=== PATIENT | male | born 1980 | race Caucasian/White ===

== ENCOUNTER 2017-10-26 18:25 | Emergency (ER) | payer SELFPAY ==
[~2017-10-26] VITALS: Ht 193 cm; Wt 80.0 kg
[2017-10-26 18:27] VITALS: Ht 193 cm; Wt 80.0 kg
[2017-10-26] MEDS ORDERED: SODIUM CHLORIDE 0.9% 1000ML 2,000 ML IV STA (18:40)
[2017-10-26] MEDS ORDERED: LORAZEPAM 2 MG/ML 1 ML VIAL IV STA (18:40)
[2017-10-26 18:43] VITALS: O2SAT 100
--- NOTE | 2017-10-26 18:47 | EMERGENCY ROOM VISIT NOTE ---
History Report prepared by Nima: Omi Jeong Under the Supervision of: Dr. Chintan Robles M.D. First contact with patient: 18:32 Chief Complaint: RESPIRATORY PROBLEMS Stated Complaint: TREMMERS,HIGH HEART RATE,LEFT SIDE NUMB History of Present Illness The patient is a 37 year old male who presents to the Emergency Room with complaints of constant heart palpitations that began .5 hours ago. He rates this pain as 0/10. The patient was sitting on the couch when he suddenly felt dizzy. He states that he had spasms, and numbness on the right and left side, numbness in his chest and arms, and chest pain. His girlfriend states that he was previously taking Zoloft. He states that he has a history of drug use in his 20's and that his last alcoholic beverage was 14 hours ago. He states that he normally does not shake after drinking and states that he normally consumes 12 alcoholic beverages every night. He denies prior episodes. He denies headache , fevers, recent falls, and head strike. He denies abdominal pain, back pain, loss of bowel and bladder control. He denies recent travel, history of blood clots, and heart problems. He denies a history of panic attacks. Source of History: patient Onset: .5 hours ago Position: chest Symptom Intensity: pain rated as 0/10 Quality: other (palpitations) Timing: constant Associated Symptoms: + chest pain, No fevers, No headache, No abdominal pain , No back pain Note: Patient reports spasms, numbness on the right and left side, and numbness in his chest and arms. Patient denies recent falls with head strike. He denies loss of bowel and bladder control. Review of Systems See HPI for pertinent positives & negatives. A total of 10 systems reviewed and were otherwise negative. Past Medical & Surgical Medical Problems: (1) ADHD (2) Anxiety (3) Bipolar disorder Social History Smoking Status: Current Some Day Smoker Alcohol Use: heavy (12 drinks daily) Drug Use: other (former user) Marital Status: in relationship Housing Status: lives with family, lives with significant other Occupation Status: unemployed Current/Historical Medications No Active Prescriptions or Reported Meds Allergies Coded Allergies: No Known Allergies (Unverified , 10/26/17) Physical Exam Vital Signs Date Time Temp Pulse Resp B/P (MAP) Pulse Ox O2 Delivery O2 Flow Rate FiO2 10/26/17 20:56 36.3 99 17 139/77 97 10/26/17 20:55 36.3 99 17 139/77 97 Room Air 10/26/17 19:57 106 17 97 Room Air 10/26/17 19:36 100 10/26/17 19:27 100 20 95 Room Air 10/26/17 19:22 85 18 139/75 100 Room Air 10/26/17 19:22 88 18 95 Room Air 10/26/17 18:43 100 Room Air 10/26/17 18:27 36.3 145 32 153/91 99 Room Air Physical Exam GENERAL: Patient is severely anxious appearing, shaking, and in no acute distress. EYES: No scleral icterus, unremarkable pupils. ENT: Dry mucous membranes, no nasal congestion. NECK: No masses appreciated, no meningismus, trachea is midline. RESPIRATORY: No dyspnea. Clear to auscultation and equal bilaterally. No wheeze , no rhonchi. CARDIOVASCULAR: Tachycardiac and regular rhythm. No murmurs, rubs, gallops appreciated. GASTROINTESTINAL: Abdomen soft, nontender, no peritonitis. Bowel sounds positive. No masses appreciated. BACK: No midline tenderness, no CVA tenderness EXTREMITIES: Normal motion all extremities, no cyanosis, no edema. NEUROLOGIC: Alert and oriented, no acute motor or sensory deficits, no focal weakness, cranial nerves grossly intact. SKIN: No rash, no jaundice, no diaphoresis. Medical Decision & Procedures ER Provider Diagnostic Interpretation: Radiology results and stated below per my review and radiologist interpretation : SINGLE VIEW CHEST CLINICAL HISTORY: Atypical chest pain. FINDINGS: 2 AP, portable, upright chest radiographs are obtained. No prior studies are available for comparison at the time of dictation. The examination is degraded by portable technique and patient rotation. The cardiomediastinal silhouette is unremarkable. The lungs and pleural spaces are clear. No pneumothorax is seen. The bony thorax is grossly intact. IMPRESSION: No acute cardiopulmonary abnormality. Electronically signed by: Can Webb M.D. 10/26/2017 7:17 PM Dictated Date/Time: 10/26/2017 7:17 PM Laboratory Results 10/26/17 19:00 Red Blood Count 4.43, Mean Corpuscular Volume 97.3, Mean Corpuscular Hemoglobin 34.8, Mean Corpuscular Hemoglobin Concent 35.7, Mean Platelet Volume 10.4, Neutrophils (%) (Auto) 45.2, Lymphocytes (%) (Auto) 37.9, Monocytes (%) (Auto) 9.8, Eosinophils (%) (Auto) 6.0, Basophils (%) (Auto) 0.7, Neutrophils # (Auto) 2.04, Lymphocytes # (Auto) 1.71, Monocytes # (Auto) 0.44, Eosinophils # (Auto) 0.27, Basophils # (Auto) 0.03 10/26/17 19:00 Test 10/26/17 19:00 10/26/17 19:35 White Blood Count 4.51 K/uL (4.8-10.8) Red Blood Count 4.43 M/uL (4.7-6.1) Hemoglobin 15.4 g/dL (14.0-18.0) Hematocrit 43.1 % (42-52) Mean Corpuscular Volume 97.3 fL (80-100) Mean Corpuscular Hemoglobin 34.8 pg (25-34) Mean Corpuscular Hemoglobin Concent 35.7 g/dl (32-36) Platelet Count 152 K/uL (130-400) Mean Platelet Volume 10.4 fL (7.4-10.4) Neutrophils (%) (Auto) 45.2 % Lymphocytes (%) (Auto) 37.9 % Monocytes (%) (Auto) 9.8 % Eosinophils (%) (Auto) 6.0 % Basophils (%) (Auto) 0.7 % Neutrophils # (Auto) 2.04 K/uL (1.4-6.5) Lymphocytes # (Auto) 1.71 K/uL (1.2-3.4) Monocytes # (Auto) 0.44 K/uL (0.11-0.59) Eosinophils # (Auto) 0.27 K/uL (0-0.5) Basophils # (Auto) 0.03 K/uL (0-0.2) RDW Standard Deviation 47.2 fL (36.4-46.3) RDW Coefficient of Variation 13.3 % (11.5-14.5) Immature Granulocyte % (Auto) 0.4 % Immature Granulocyte # (Auto) 0.02 K/uL (0.00-0.02) Anion Gap 12.0 mmol/L (3-11) Est Creatinine Clear Calc Drug Dose 106.9 ml/min Estimated GFR () 103.1 Estimated GFR (Non- 89.0 BUN/Creatinine Ratio 10.5 (10-20) Calcium Level 9.1 mg/dl (8.5-10.1) Total Bilirubin 0.6 mg/dl (0.2-1) Direct Bilirubin 0.2 mg/dl (0-0.2) Aspartate Amino Transf (AST/SGOT) 92 U/L (15-37) Alanine Aminotransferase (ALT/SGPT) 69 U/L (12-78) Alkaline Phosphatase 62 U/L (45-117) Total Creatine Kinase 116 U/L (39-308) Creatine Kinase MB < 0.5 ng/ml (0.5-3.6) Creatine Kinase MB Ratio (0-3.0) Troponin I < 0.015 ng/ml (0-0.045) Total Protein 8.0 gm/dl (6.4-8.2) Albumin 4.1 gm/dl (3.4-5.0) Thyroid Stimulating Hormone (TSH) 1.730 uIu/ml (0.300-4.500) D-Dimer 220 ug/L FEU (0-500) Laboratory results as reviewed by me. Medications Administered Medications (Trade) Dose Ordered Sig/Izabella Route Start Time Stop Time Status Last Admin Dose Admin Sodium Chloride 2,000 ml @ 999 mls/hr Q2H1M STAT IV 10/26/17 18:40 10/26/17 20:40 DC 10/26/17 19:19 999 MLS/HR Lorazepam (Ativan Inj) 2 mg NOW STAT IV 10/26/17 18:40 10/26/17 18:42 DC 10/26/17 19:20 2 MG Lorazepam (Ativan 1MG Home Pack) 1 homepack UD ONCE PO 10/26/17 20:45 10/26/17 20:46 DC 10/26/17 20:52 1 HOMEPACK ECG Per My Interpretation Indication: other (heart palpitations) Rate (beats per minute): 112 Rhythm: sinus tachycardia Findings: ST depression (Mild Lateral), no acute ischemic change, no ectopy, other (No STEMI; poor baseline) ED Course 1831: The patient was evaluated in room C8. A complete history and physical exam was performed. 1930: I checked on the patient and his heart rate is 70. He states that he feels much better. 2044: Reevaluated the patient. Discussed results and discharge instructions: He verbalized understanding and agreement. The patient is ready for discharge. Medical Decision Differential: NSR, SVT, PACs, PVCs, Cardiac Dysrhythmia, Endocrine Dysfunction, Electrolyte/Metabolic Abnormality, Pulmonary Embolism, Infectious, GI, alcohol withdrawal, amongst other pathologies entertained. Very anxious 37 yr old male arrives for evaluation of palpitations associated with paresthesias all over body. He is clearly anxious though stating he is not feeling anxious. Symptoms resolved with IV ativan. He admits heavy alcohol use regularly though states he can go several days without drinking and no withdrawal symptoms. Given IV fluids as well. He has unremarkable labs other than mild AST elevation consistent with alcohol intake. Offered IM Thiamine though he wants to avoid further stabs and states he will take multivitamin daily. He has no neuro deficits by exam, no headache, and looks well thus I do not feel neuro imaging necessary. Dimer negative thus I do not feel this is PE. Trop negative and EKG without ischemia. Repeat EKG with NSR, no stemi and looks OK. He is in no distress and breathing comfortably with HR in 80s-90s after calming down. He has long history of bipolar and off meds for last 4 years. Significant other asked if I would write patient Zoloft though I noted this would probably not be appropriate from ED doc if he is not currently on it. He denies suicidal ideation, is not significant depressed by questioning and states only periodic anxiety attacks. Advised follow up with [facility]. Aware RTED if worsening or other concerns. Stable and looks well at discharge. Medication Reconcilliation Current Medication List: was personally reviewed by me Blood Pressure Screening Patient's blood pressure: Elevated blood pressure Blood pressure disposition: Elevated BP felt to be situational Impression Primary Impression: Heart palpitations Scribe Attestation The scribe's documentation has been prepared under my direction and personally reviewed by me in its entirety. I confirm that the note above accurately reflects all work, treatment, procedures, and medical decision making performed by me. Departure Information Dispostion Home / Self-Care Prescriptions No Active Prescriptions or Reported Meds Patient Instructions My [facility] Additional Instructions Keep well hydrated. You should heavily consider stopping your alcohol intake as you have some mild elevation of your liver enzymes. Taking a multivitamin daily may be helpful. Follow up with [facility]. Return if worsening palpitations, chest pain, passing out, weakness in arms/legs , headaches, fevers or other concerns. We are always here to help. You have received a benzodiazepine medication. Use this if you feel symptoms returning, if symptoms continue to worsen return. These medications may cause drowsiness and should not be used with other sedative medications. Do not drive , drink alcohol, perform dangerous activities, nor make important decisions after taking these medications.
[2017-10-26 19:17] LABS: BASO % 0.7 %; BASO ABS # 0.03 K/uL (0-0.2); EOS ABS # 0.27 K/uL (0-0.5); HEMATOCRIT 43.1 % (42-52); HEMOGLOBIN 15.4 g/dL (14.0-18.0); IG# 0.02 K/uL (0.00-0.02); LYMPH % 37.9 %; LYMPH ABS # 1.71 K/uL (1.2-3.4); MEAN CELL VOLUME 97.3 fL (80-100); MEAN CORPUSCULAR HEMOGLOBIN 34.8 pg (25-34); MEAN CORPUSCULAR HGB CONC 35.7 g/dl (32-36); MEAN PLATELET VOLUME 10.4 fL (7.4-10.4); MONO % 9.8 %; MONO ABS # 0.44 K/uL (0.11-0.59); NEUT % 45.2 %; NEUT ABS # 2.04 K/uL (1.4-6.5); PLATELET COUNT 152 K/uL (130-400); RED CELL DISTRIBUTION WIDTH CV 13.3 % (11.5-14.5); RED CELL DISTRIBUTION WIDTH SD 47.2 fL (36.4-46.3); WHITE BLOOD COUNT 4.51 K/uL (4.8-10.8)
--- NOTE | 2017-10-26 19:19 | DIAGNOSTIC IMAGING REPORT ---
SINGLE VIEW CHEST CLINICAL HISTORY: Atypical chest pain. FINDINGS: 2 AP, portable, upright chest radiographs are obtained. No prior studies are available for comparison at the time of dictation. The examination is degraded by portable technique and patient rotation. The cardiomediastinal silhouette is unremarkable. The lungs and pleural spaces are clear. No pneumothorax is seen. The bony thorax is grossly intact. IMPRESSION: No acute cardiopulmonary abnormality. Electronically signed by: Can Webb M.D. 10/26/2017 7:17 PM Dictated Date/Time: 10/26/2017 7:17 PM
[2017-10-26 19:35] LABS: ALBUMIN 4.1 gm/dl (3.4-5.0); ALT/SGPT 69 U/L (12-78); BLOOD UREA NITROGEN 11 mg/dl (7-18); CALCIUM 9.1 mg/dl (8.5-10.1); CARBON DIOXIDE 24 mmol/L (21-32); CREATININE 1.05 mg/dl (0.60-1.40); GLUCOSE 163 mg/dl (70-99); POTASSIUM 3.8 mmol/L (3.5-5.1); SODIUM 139 mmol/L (136-145)
[2017-10-26 19:46] LABS: ALKALINE PHOSPHATASE 62 U/L (45-117); AST/SGOT 92 U/L (15-37); CKMB < 0.5 ng/ml (0.5-3.6)
[2017-10-26] MEDS ORDERED: ATIVAN 1MG HOMEPACK PO ONE (20:45)
[2017-10-26 20:56] VITALS: BP 139/77; PULSE 99; TEMP 36.3; O2SAT 97
== END 2017-10-26 20:57 | disposition home or self-care (01) ==
LOC: C.EDB 18:27 → C.EDC 20:57
DX: R00.2 Palpitations (principal); R20.2 Paresthesia of skin; R79.89 Other specified abnormal findings of blood chemistry; Z72.89 Other problems related to lifestyle; F17.200 Nicotine dependence, unspecified, uncomplicated; Z86.59 Personal history of other mental and behavioral disorders; Z87.898 Personal history of other specified conditions